=== PATIENT | female | born 1970 | race Caucasian/White ===

== ENCOUNTER 2016-11-06 18:37 | Emergency (ER) | payer MEDICAID ==
[~2016-11-06] VITALS: Ht 165.1 cm; Wt 80.8 kg
[2016-11-06] MEDS ORDERED: LORazepam 1MG TABLET ONE (19:11)
[2016-11-06] MEDS ORDERED: LORazepam 1MG TABLET PO ONE (19:30)
[2016-11-06 20:55] VITALS: BP 104/62
== END 2016-11-06 20:57 | disposition home or self-care (01) ==
LOC: ED 20:01
DX: F25.9 Schizoaffective disorder, unspecified (principal); F41.9 Anxiety disorder, unspecified
CPT/HCPCS: 99284

== ENCOUNTER 2016-12-02 06:34 | Emergency (ER) | payer MEDICAID ==
[~2016-12-02] VITALS: Ht 165.1 cm; Wt 85.1 kg
[2016-12-02] MEDS ORDERED: ERYTHROMYCIN OPHTH 0.5%, 1GM RIGHTEYE ONE (07:00)
[2016-12-02 07:01] VITALS: BP 122/78
== END 2016-12-02 07:15 | disposition home or self-care (01) ==
LOC: ED 07:09
DX: H10.231 Serous conjunctivitis, except viral, right eye (principal); J20.8 Acute bronchitis due to other specified organisms; F25.9 Schizoaffective disorder, unspecified; F17.200 Nicotine dependence, unspecified, uncomplicated
CPT/HCPCS: 99282

== ENCOUNTER 2016-12-02 19:45 | Emergency (ER) | payer MEDICAID ==
[~2016-12-02] VITALS: Ht 167.6 cm; Wt 87.9 kg
[2016-12-02 19:47] VITALS: BP 103/67
== END 2016-12-02 20:10 | disposition left against medical advice (07) ==
LOC: ED 20:00
DX: H57.11 Ocular pain, right eye (principal); Z53.21 Procedure and treatment not carried out due to patient leaving prior to being seen by health care provider

== ENCOUNTER 2017-07-09 09:35 | Emergency (ER) | payer MEDICAID ==
[~2017-07-09] VITALS: Ht 170.2 cm; Wt 86.0 kg
[2017-07-09 09:40] VITALS: BP 113/73
== END 2017-07-09 10:45 | disposition home or self-care (01) ==
LOC: ED 10:35
DX: J00 Acute nasopharyngitis [common cold] (principal); F17.200 Nicotine dependence, unspecified, uncomplicated; F25.9 Schizoaffective disorder, unspecified; Z88.0 Allergy status to penicillin
CPT/HCPCS: 71046; 99284

== ENCOUNTER 2017-12-22 01:04 | Emergency (ER) | payer MEDICAID ==
[~2017-12-22] VITALS: Ht 167.6 cm; Wt 77.7 kg
[2017-12-22 01:05] VITALS: BP 109/75
== END 2017-12-22 01:43 | disposition home or self-care (01) ==
LOC: ED 01:32
DX: T21.17XA Burn of first degree of female genital region, initial encounter (principal); T31.0 Burns involving less than 10% of body surface; F17.200 Nicotine dependence, unspecified, uncomplicated; Z88.0 Allergy status to penicillin; X58.XXXA Exposure to other specified factors, initial encounter; Y93.89 Activity, other specified; Y92.89 Other specified places as the place of occurrence of the external cause; Y99.8 Other external cause status
CPT/HCPCS: 99281

== ENCOUNTER 2018-03-30 14:28 | Emergency (ER) | payer MEDICAID ==
[~2018-03-30] VITALS: Ht 170.2 cm; Wt 81.7 kg
[2018-03-30 16:56] VITALS: BP 110/75
== END 2018-03-30 17:18 | disposition home or self-care (01) ==
LOC: ED 17:15
DX: G44.221 Chronic tension-type headache, intractable (principal)
CPT/HCPCS: 70450; 72050; 99284

== ENCOUNTER 2018-05-18 11:47 | Emergency (ER) | payer MEDICAID ==
[~2018-05-18] VITALS: Ht 170.2 cm; Wt 83.0 kg
[2018-05-18 11:51] VITALS: BP 106/80
== END 2018-05-18 12:55 | disposition home or self-care (01) ==
LOC: ED 12:14
DX: B34.9 Viral infection, unspecified (principal); F20.9 Schizophrenia, unspecified; Z88.0 Allergy status to penicillin; F17.200 Nicotine dependence, unspecified, uncomplicated
CPT/HCPCS: 71046; 99283

== ENCOUNTER 2018-06-10 10:56 | Emergency (ER) | payer MEDICAID ==
[~2018-06-10] VITALS: Ht 160 cm; Wt 86.0 kg
[2018-06-10 11:21] VITALS: BP 107/61
[2018-06-10] MEDS ORDERED: IBUPROFEN 200 MG TABLET PO ONE (13:00)
[2018-06-10] MEDS ORDERED: IBUPROFEN 200 MG TABLET ONE (13:14)
== END 2018-06-10 13:25 | disposition home or self-care (01) ==
LOC: ED 12:51
DX: J02.8 Acute pharyngitis due to other specified organisms (principal); B97.89 Other viral agents as the cause of diseases classified elsewhere; F17.200 Nicotine dependence, unspecified, uncomplicated; Z88.0 Allergy status to penicillin
CPT/HCPCS: 71046; 87081; 87880; 99284

== ENCOUNTER 2018-06-15 13:35 | Emergency (ER) | payer MEDICAID ==
[~2018-06-15] VITALS: Ht 167.6 cm; Wt 75.0 kg
--- NOTE | 2018-06-15 14:23 | NUR ---
PT TO ROOM FROM LOBBY.
--- NOTE | 2018-06-15 14:29 | NUR ---
PT AMBULATES TO BR TO PROVIDE UA.
[2018-06-15] MEDS ORDERED: FAMOTIDINE 20 MG TABLET PO ONE (14:30)
[2018-06-15] MEDS ORDERED: MAALOX/HYOSCYAMINE/LIDOCAINE 45 ML BTL PO ONE ×2 (14:30→15:30)
[2018-06-15] MEDS ORDERED: FAMOTIDINE 20 MG TABLET ONE (14:36)
[2018-06-15] MEDS ORDERED: MAALOX/HYOSCYAMINE/LIDOCAINE 45 ML BTL ONE (14:37)
--- NOTE | 2018-06-15 14:39 | NUR ---
URINE SENT TO LAB. PT MEDICATED PER ERP ORDER FOR EPIGASTRIC "GURGLING" AND PAIN. CALL LIGHT WITHIN REACH, WARM BLANKET PROVIDED.
[2018-06-15 14:49] LABS: HCG UR SG 1.036 (1.003-1.030)
[2018-06-15 14:50] LABS: BASOPHILS % (AUTO) 0 % (0-1); EOSINOPHILS # (AUTO) 0.01 x10^3/uL (0-0.4); EOSINOPHILS % (AUTO) 0 % (1-7); LYMPHOCYTES # (AUTO) 0.32 x10^3/uL (1-3.4); LYMPHOCYTES % (AUTO) 2 % (22-44); MD NO; MEAN CORPUSCULAR HEMOGLOBIN 32.5 pg (27.0-34.8); MEAN CORPUSCULAR HGB CONC 32.2 g/dL (32.4-35.8); MEAN CORPUSCULAR VOLUME 101.2 fL (80-100); MONOCYTES % (AUTO) 4 % (2-9); NEUTROPHILS # (AUTO) 13.11 x10^3/uL (1.8-6.8); NEUTROPHILS % (AUTO) 94 % (42-75); PLATELET COUNT 414 x10^3/uL (130-400); RED BLOOD COUNT 5.07 x10^6/uL (3.82-5.3); RED CELL DISTRIBUTION WIDTH 14.5 % (9.6-15.2)
[2018-06-15 14:55] LABS: ANION GAP 9 mmol/L (5-15); CHLORIDE 109 mmol/L (98-107)
[2018-06-15 14:58] LABS: ALANINE AMINOTRANSFERASE 43 U/L (12-78); ALKALINE PHOSPHATASE 62 U/L (45-117); BILIRUBIN,TOTAL 0.6 mg/dL (0.2-1.0); CREATININE 0.88 mg/dL (0.55-1.02); TOTAL PROTEIN 8.7 g/dL (6.4-8.2)
[2018-06-15 14:59] LABS: MICROSCOPIC INDICATED
[2018-06-15 15:08] LABS: CULTURE INDICATED? YES
--- NOTE | 2018-06-15 15:36 | NUR ---
ALL RESULTS BACK, PT FOR RECHECK.
[2018-06-15 15:39] VITALS: BP 128/84
== END 2018-06-15 16:17 | disposition home or self-care (01) ==
LOC: ED 15:39
DX: K52.89 Other specified noninfective gastroenteritis and colitis (principal)
CPT/HCPCS: 36415; 74022; 80053; 81001; 81025; 83690; 85025; 87086; 93005; 99284

== ENCOUNTER 2018-06-26 09:54 | Emergency (ER) | payer MEDICAID ==
[~2018-06-26] VITALS: Ht 165.1 cm; Wt 82.1 kg
--- NOTE | 2018-06-26 10:01 | NUR ---
[employer]ER: NECK BRACE APPLIED. PT WC'D TO [id number]
[2018-06-26] MEDS ORDERED: METHOCARBAMOL 750 MG TABLET ONE (10:24)
[2018-06-26] MEDS ORDERED: KETOROLAC 30 MG/1 ML ONE (10:24)
[2018-06-26] MEDS ORDERED: KETOROLAC 30 MG/1 ML IM ONE (10:30)
[2018-06-26] MEDS ORDERED: METHOCARBAMOL 750 MG TABLET PO ONE (10:30)
[2018-06-26 11:33] VITALS: BP 132/74
== END 2018-06-26 11:36 | disposition home or self-care (01) ==
LOC: ED 10:14
DX: S16.1XXA Strain of muscle, fascia and tendon at neck level, initial encounter (principal); S29.012A Strain of muscle and tendon of back wall of thorax, initial encounter; M54.12 Radiculopathy, cervical region; G89.11 Acute pain due to trauma; G44.209 Tension-type headache, unspecified, not intractable; F25.9 Schizoaffective disorder, unspecified; W19.XXXA Unspecified fall, initial encounter; Y93.89 Activity, other specified; Y92.89 Other specified places as the place of occurrence of the external cause; Y99.8 Other external cause status
CPT/HCPCS: 72020; 72050; 72072; 96372; 99283; J1885; J7512

== ENCOUNTER 2019-03-31 10:50 | Emergency (ER) | payer MEDICAID ==
[~2019-03-31] VITALS: Ht 170.2 cm; Wt 85.2 kg
[2019-03-31] MEDS ORDERED: KETOROLAC 30 MG/1 ML IM ONE (11:30)
[2019-03-31] MEDS ORDERED: DIAZEPAM 5 MG TABLET PO ONE (11:30)
[2019-03-31] MEDS ORDERED: KETOROLAC 30 MG/1 ML ONE (11:34)
[2019-03-31] MEDS ORDERED: DIAZEPAM 5 MG TABLET ONE (11:34)
--- NOTE | 2019-03-31 11:43 | NUR ---
PT MED NOTED FOR LEFT ARM/NECK PAIN 03/12
[2019-03-31 12:19] VITALS: BP 115/82
--- NOTE | 2019-03-31 12:40 | NUR ---
Patient/Caregiver given discharge instructions and they have confirmed that they understand the instructions. Patient ambulatory with steady gait.
== END 2019-03-31 12:40 | disposition home or self-care (01) ==
LOC: ED 12:20
DX: S46.912A Strain of unspecified muscle, fascia and tendon at shoulder and upper arm level, left arm, initial encounter (principal); F17.200 Nicotine dependence, unspecified, uncomplicated; X58.XXXA Exposure to other specified factors, initial encounter; Y93.89 Activity, other specified; Y92.89 Other specified places as the place of occurrence of the external cause; Y99.8 Other external cause status
CPT/HCPCS: 72050; 73080; 93005; 96372; 99283; J1885

== ENCOUNTER 2019-08-06 09:57 | Emergency (ER) | payer MEDICAID ==
[~2019-08-06] VITALS: Ht 170.2 cm; Wt 82.6 kg
[2019-08-06 10:15] VITALS: BP 122/71
[2019-08-06] MEDS ORDERED: METHOCARBAMOL 750 MG TABLET ONE (10:46)
[2019-08-06] MEDS ORDERED: HYDROcodone/APAP 5/325 TABLET ONE (10:47)
[2019-08-06] MEDS ORDERED: METHOCARBAMOL 750 MG TABLET PO ONE (11:00)
[2019-08-06] MEDS ORDERED: HYDROcodone/APAP 5/325 TABLET PO ONE (11:00)
== END 2019-08-06 11:46 | disposition home or self-care (01) ==
LOC: ED 11:30
DX: M54.2 Cervicalgia (principal); R20.0 Anesthesia of skin
CPT/HCPCS: 72125; 99284

== ENCOUNTER 2020-10-03 12:54 | Emergency (ER) | payer MEDICAID ==
[~2020-10-03] VITALS: Ht 170.2 cm; Wt 82.6 kg
--- NOTE | 2020-10-03 13:49 | NUR ---
OPERATOR CONTROL ROOM: PT TO ROOM FROM LOBBY
--- NOTE | 2020-10-03 13:57 | NUR ---
CC OF LEFT ARM NUMBESS, SWELLING, REDNESS, AND PAIN SINCE SATURDAY EVENING 03/12. 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 ARMS APPEAR TO BE EQUAL IN SIZE, NO OVBIOUS SWELLING NOTED. BILAT ARMS APPEAR TO BE JENINFER, SIMILAR TO A SUNBURN APPEARANCE. PT RESTING [facility], WATCHING TV, NO OBVIOUS DISTRESS AT THIS TIME.
[2020-10-03] MEDS ORDERED: KETOROLAC 30 MG/1 ML IM ONE (14:30)
[2020-10-03] MEDS ORDERED: KETOROLAC 30 MG/1 ML ONE (14:37)
[2020-10-03] MEDS ORDERED: KETOROLAC 60 MG/2 ML ONE (14:40)
[2020-10-03 14:49] VITALS: BP 130/85
== END 2020-10-03 14:55 | disposition home or self-care (01) ==
LOC: ED 14:30
DX: G56.02 Carpal tunnel syndrome, left upper limb (principal)
CPT/HCPCS: 29125; 96372; 99283; J1885